=== PATIENT | female | born 1960 | race African-American/Black ===

== ENCOUNTER 2019-02-03 04:35 | Emergency (ER) | payer MEDICAID, OTHER ==
[~2019-02-03] VITALS: Ht 157.5 cm; Wt 61.0 kg
[~2019-02-03 04:35] MED LIST: ABIL5; BENA10TA10; METF-414
[2019-02-03] MEDS ORDERED: SODIUM CHLORIDE 0.9% 1,000 ML IV ONE (06:26)
[2019-02-03 07:00] LABS: CHLORIDE 99 mEq/L (98-107)
[2019-02-03 07:02] LABS: BASOPHILS % 1.1 % (0.0-2.0); EOSINOPHILS % 2.7 % (0.0-5.0); HEMATOCRIT. 45.3 % (36.0-48.0); LYMPHOCYTES % 35.2 % (20.0-50.0); MEAN CORPUSCULAR HEMOGLOBIN 29.7 pg (28.0-32.0); MEAN CORPUSCULAR VOLUME 89.4 fL (81.0-99.0); MEAN PLATELET VOLUME 8.7 fl (7.4-10.4); MONOCYTES % 9.9 % (2.0-8.0); NEUTROPHILS % 51.1 % (40.0-76.0); PLATELET 328 x1000/uL (130-400); RED BLOOD CELL COUNT 5.07 mill/uL (4.2-5.4); RED CELL DISTRIBUTION WIDTH 14.4 % (11.6-14.6)
[2019-02-03 07:03] LABS: ETHANOL BLOOD < 10 mg/dL
[2019-02-03] MEDS ORDERED: INSULIN REGULAR (HUMULIN R) 300UNITS/3ML IV ONE (07:15)
[2019-02-03 07:28] LABS: CLARITY URINE CLEAR (CLEAR); COLOR URINE YELLOW (YELLOW); KETONES URINE NEGATIVE (NEGATIVE); LEUKOCYTE ESTERASE URINE 2+ (NEGATIVE); NITRITE URINE NEGATIVE (NEGATIVE); OCCULT BLOOD URINE NEGATIVE (NEGATIVE); PH URINE 6.5 (4.5-8.0); PROTEIN URINE NEGATIVE (NEGATIVE); SPECIFIC GRAVITY URINE 1.031 (1.005-1.030)
[2019-02-03 07:42] LABS: *BARBITURATES SCREEN URINE NEGATIVE (NEGATIVE)
[2019-02-03 07:43] LABS: *AMPHETAMINES SCREEN URINE NEGATIVE (NEGATIVE); *BENZODIAZEPINES SCREEN URINE NEGATIVE (NEGATIVE); *COCAINE SCREEN URINE PRESUMTIVE POSITIVE (NEGATIVE); CANNABINOID URINE SCREEN NEGATIVE (NEGATIVE); METHADONE URINE SCREEN NEGATIVE (NEGATIVE); OPIATES URINE SCREEN NEGATIVE (NEGATIVE); PHENCYCLIDINE URINE SCREEN NEGATIVE (NEGATIVE)
[2019-02-03] MEDS ORDERED: CEFTRIAXONE 1 G PREMIX 50 ML IV ONE (07:45)
[2019-02-03 07:53] LABS: BG BASE EXCESS 0.9 mmol/L (-2.0-2.0); BG CARBOXYHEMOGLOBIN 10.3 % (0.5-1.5); BG DEOXYHEMOGLOBIN 3.7 % (0.0-5.0); BG HCO3 ACT 25.4 mmol/L (22.0-26.0); BG METHEMOGLOBIN 0.3 % (0.0-1.5); BG OXYGEN SATURATION 95.9 % (92.0-98.5); BG OXYHEMOGLOBIN 85.7 % (94.0-97.0); BG PCO2 40.4 mmHg (35.0-45.0); BG PH 7.417 (7.350-7.450); BG PO2 77.7 mmHg (75.0-100.0); BG SAMPLE SITE LEFT BRACHIAL; BG TOTAL HEMOGLOBIN 14.4 g/dL (12.0-18.0); BG VENT MODE ROOM AIR
[2019-02-03 12:29] VITALS: BP 134/76
== END 2019-02-03 12:29 | disposition home or self-care (01) ==
LOC: ER 04:35
DX: E11.65 Type 2 diabetes mellitus with hyperglycemia (principal); F14.129 Cocaine abuse with intoxication, unspecified; E87.6 Hypokalemia; E03.9 Hypothyroidism, unspecified; I10 Essential (primary) hypertension; F15.10 Other stimulant abuse, uncomplicated; F17.200 Nicotine dependence, unspecified, uncomplicated; Z91.14 Patient's other noncompliance with medication regimen; Z88.5 Allergy status to narcotic agent; Z79.84 Long term (current) use of oral hypoglycemic drugs
CPT/HCPCS: 36415; 36600; 80048; 80305; 80307; 80320; 80329; 81003; 82010; 82375; 82805; 82962; 84484; 85025; 87077; 87086; 93005; 96365; 96366; 96375; 99284; J0696; J1815; J7030; Z7610; G0480

== ENCOUNTER 2020-03-22 07:45 | Inpatient (IN) | payer MEDICAID, OTHER ==
[~2020-03-22] VITALS: Ht 154.9 cm; Wt 47.6 kg
[~2020-03-22 07:45] MED LIST changes: -BENA10TA10; +BENA10TA74
[2020-03-22] MEDS ORDERED: SODIUM CHLORIDE 0.9% 1,000 ML IV ONE ×2 (08:22→09:33)
[2020-03-22 08:54] LABS: BASOPHILS % 1.2 % (0.0-2.0); EOSINOPHILS % 1.9 % (0.0-5.0); HEMOGLOBIN. 16.5 g/dL (12.0-16.0); LYMPHOCYTES % 25.4 % (20.0-50.0); MEAN CORPUSCULAR HEMOGLOBIN 31.6 pg (28.0-32.0); MEAN CORPUSCULAR VOLUME 95.7 fL (81.0-99.0); MEAN PLATELET VOLUME 9.4 fl (7.4-10.4); NEUTROPHILS % 65.5 % (40.0-76.0); PLATELET 264 x1000/uL (130-400); RED BLOOD CELL COUNT 5.23 mill/uL (4.2-5.4); RED CELL DISTRIBUTION WIDTH 13.6 % (11.6-14.6)
[2020-03-22 08:54] LABS: CLARITY URINE CLEAR (CLEAR); COLOR URINE YELLOW (YELLOW); KETONES URINE 2+ (NEGATIVE); LEUKOCYTE ESTERASE URINE NEGATIVE (NEGATIVE); NITRITE URINE NEGATIVE (NEGATIVE); OCCULT BLOOD URINE NEGATIVE (NEGATIVE); PROTEIN URINE TRACE (NEGATIVE); SPECIFIC GRAVITY URINE 1.036 (1.005-1.030); UROBILINOGEN URINE 0.2 E.U./dL (0.2-1.0)
[2020-03-22 08:57] LABS: CHLORIDE 96 mEq/L (98-107)
[2020-03-22 09:06] LABS: BETA HYDROXYBUTYRATE 3.3 mMol/L (0.0-0.3)
[2020-03-22] MEDS ORDERED: INSULIN REGULAR (HUMULIN R) UD 100 UNITS/ML SYR IV ONE (09:15)
[2020-03-22] MEDS ORDERED: KETOROLAC 15MG/ML VIAL IV ONE (09:45)
[2020-03-22] MEDS ORDERED: CEFTRIAXONE 1 G PREMIX 50 ML IV ONE (09:45)
[2020-03-22] MEDS ORDERED: INSULIN REGULAR (HUMULIN R) 300UNITS/3ML IV ONE (09:45)
[2020-03-22 11:30] LABS: BG BASE EXCESS -6.8 mmol/L (-2.0-2.0); BG CARBOXYHEMOGLOBIN 0.8 % (0.5-1.5); BG DEOXYHEMOGLOBIN 4.3 % (0.0-5.0); BG FRACTION INSPIRED OXYGEN 21; BG HCO3 ACT 19.2 mmol/L (22.0-26.0); BG METHEMOGLOBIN 0.3 % (0.0-1.5); BG OXYGEN SATURATION 95.7 % (92.0-98.5); BG OXYHEMOGLOBIN 94.6 % (94.0-97.0); BG PCO2 40.2 mmHg (35.0-45.0); BG PH 7.297 (7.350-7.450); BG SAMPLE SITE RIGHT RADIAL; BG TOTAL HEMOGLOBIN 13.7 g/dL (12.0-18.0); BG VENT MODE ROOM AIR
[2020-03-22] MEDS ORDERED: LIDOCAINE HCL/PF 1% 2ML VIAL ONE (11:30)
[2020-03-22] MEDS: INSULIN LISPRO 100 UNITS/ML SUBCUT SCH ×3 (13:20→21:00)
[2020-03-22] MEDS ORDERED: IPRATROPIUM/ALBUTEROL 0.5-3(2.5)MG/3ML NEB HHN PRN (13:30)
[2020-03-22] MEDS ORDERED: ACETAMINOPHEN 325MG TABLET PO PRN (13:30)
[2020-03-22] MEDS ORDERED: DEXTROSE 50% WATER 50ML SYRINGE IV PRN (13:30)
[2020-03-22] MEDS ORDERED: ONDANSETRON HCL 4MG/2ML INJ IV PRN (13:30)
[2020-03-22] MEDS: SODIUM CHLORIDE 0.9% 1,000 ML IV SCH (13:30)
[2020-03-22] MEDS ORDERED: BENZONATATE 100MG CAPSULE PO PRN (13:30)
[2020-03-22] MEDS ORDERED: INSULIN GLARGINE UD 100 UNITS/ML SYR SUBCUT NR (15:00)
[2020-03-22] MEDS: BLOOD SUGAR DIAGNOSTIC STRIP TEST SCH ×3 (15:07→21:00)
[2020-03-22 17:51] VITALS: BP 119/70
[2020-03-22] MEDS ORDERED: AMLODIPINE 5MG TABLET PO NR (18:15)
[2020-03-22 20:00] VITALS: BP 141/52
[2020-03-22] MEDS: CLONAZEPAM 1MG TABLET PO SCH (20:59)
[2020-03-22] MEDS: AMLODIPINE 5MG TABLET PO SCH (20:59)
[2020-03-22] MEDS ORDERED: INSULIN GLARGINE UD 100 UNITS/ML SYR SUBCUT SCH ×2 (22:00→23:00)
[2020-03-23] VITALS: BP 110/61
[2020-03-23] MEDS: SODIUM CHLORIDE 0.9% 1,000 ML IV SCH ×2 (02:23→17:32)
[2020-03-23 04:00] VITALS: BP 114/74
[2020-03-23] MEDS: BLOOD SUGAR DIAGNOSTIC STRIP TEST SCH ×4 (07:32→21:00)
[2020-03-23 08:00] VITALS: BP 119/70
[2020-03-23] MEDS: AMLODIPINE 5MG TABLET PO SCH ×2 (08:49→21:00)
[2020-03-23] MEDS: CLONAZEPAM 1MG TABLET PO SCH ×2 (08:49→17:32)
[2020-03-23] MEDS: INSULIN LISPRO 100 UNITS/ML SUBCUT SCH ×4 (08:51→21:00)
[2020-03-23] MEDS: INSULIN GLARGINE UD 100 UNITS/ML SYR SUBCUT SCH ×2 (10:54→22:34)
[2020-03-23 12:00] VITALS: BP 95/52
[2020-03-23] MEDS: FOLIC ACID 1MG TABLET PO SCH (15:46)
[2020-03-23] MEDS: MULTIVITAMINS,THER W-MINERALS TABLET PO SCH (15:46)
[2020-03-23] MEDS: THIAMINE HCL 100MG TABLET PO SCH (15:46)
[2020-03-23 16:00] VITALS: BP 113/70
[2020-03-23] MEDS: METFORMIN HCL 500MG TABLET PO SCH (17:32)
[2020-03-23 19:45] LABS: *AMPHETAMINES SCREEN URINE PRESUMTIVE POSITIVE (NEGATIVE); *BARBITURATES SCREEN URINE NEGATIVE (NEGATIVE); *BENZODIAZEPINES SCREEN URINE NEGATIVE (NEGATIVE); *COCAINE SCREEN URINE PRESUMTIVE POSITIVE (NEGATIVE); CANNABINOID URINE SCREEN NEGATIVE (NEGATIVE); METHADONE URINE SCREEN NEGATIVE (NEGATIVE); OPIATES URINE SCREEN NEGATIVE (NEGATIVE); PHENCYCLIDINE URINE SCREEN NEGATIVE (NEGATIVE)
[2020-03-23 20:00] VITALS: BP 106/57
[2020-03-23 20:33] LABS: CHLORIDE 113 mEq/L (98-107)
[2020-03-24] VITALS: BP 121/73
[2020-03-24 04:00] VITALS: BP 121/73
[2020-03-24] MEDS: BLOOD SUGAR DIAGNOSTIC STRIP TEST SCH ×4 (07:20→21:35)
[2020-03-24 08:00] VITALS: BP 110/66
[2020-03-24] MEDS: INSULIN LISPRO 100 UNITS/ML SUBCUT SCH ×6 (08:38→21:36)
[2020-03-24] MEDS: THIAMINE HCL 100MG TABLET PO SCH (08:41)
[2020-03-24] MEDS: METFORMIN HCL 500MG TABLET PO SCH ×2 (08:41→17:43)
[2020-03-24] MEDS: CLONAZEPAM 1MG TABLET PO SCH ×2 (08:41→17:43)
[2020-03-24] MEDS: FOLIC ACID 1MG TABLET PO SCH (08:41)
[2020-03-24] MEDS: MULTIVITAMINS,THER W-MINERALS TABLET PO SCH (08:41)
[2020-03-24] MEDS: AMLODIPINE 5MG TABLET PO SCH ×2 (08:42→21:35)
[2020-03-24] MEDS: INSULIN GLARGINE UD 100 UNITS/ML SYR SUBCUT SCH ×2 (11:03→21:55)
[2020-03-24 16:00] VITALS: BP 117/71
[2020-03-24] MEDS: SODIUM CHLORIDE 0.9% 1,000 ML IV SCH (18:01)
[2020-03-24 20:00] VITALS: BP 121/63
[2020-03-25] VITALS: BP_SYST 112; BP_SYST 117; BP_DIAS 60; BP_DIAS 64
[2020-03-25 04:00] VITALS: BP 117/64
[2020-03-25] MEDS: BLOOD SUGAR DIAGNOSTIC STRIP TEST SCH ×4 (06:37→21:41)
[2020-03-25] MEDS: SODIUM CHLORIDE 0.9% 1,000 ML IV SCH (08:10)
[2020-03-25] MEDS: INSULIN LISPRO 100 UNITS/ML SUBCUT SCH ×7 (08:37→21:41)
[2020-03-25] MEDS: MULTIVITAMINS,THER W-MINERALS TABLET PO SCH (08:48)
[2020-03-25] MEDS: CLONAZEPAM 1MG TABLET PO SCH ×2 (08:48→17:31)
[2020-03-25] MEDS: THIAMINE HCL 100MG TABLET PO SCH (08:48)
[2020-03-25] MEDS: FOLIC ACID 1MG TABLET PO SCH (08:48)
[2020-03-25] MEDS: METFORMIN HCL 500MG TABLET PO SCH ×2 (08:48→17:31)
[2020-03-25] MEDS: AMLODIPINE 5MG TABLET PO SCH ×2 (08:53→21:40)
[2020-03-25] MEDS: INSULIN GLARGINE UD 100 UNITS/ML SYR SUBCUT SCH ×2 (11:04→21:40)
[2020-03-25 20:00] VITALS: BP 134/62
[2020-03-26 04:00] VITALS: BP 139/74
[2020-03-26] MEDS: BLOOD SUGAR DIAGNOSTIC STRIP TEST SCH ×2 (06:22→12:26)
[2020-03-26] MEDS: METFORMIN HCL 500MG TABLET PO SCH (08:33)
[2020-03-26] MEDS: MULTIVITAMINS,THER W-MINERALS TABLET PO SCH (08:33)
[2020-03-26] MEDS: CLONAZEPAM 1MG TABLET PO SCH (08:33)
[2020-03-26] MEDS: FOLIC ACID 1MG TABLET PO SCH (08:33)
[2020-03-26] MEDS: THIAMINE HCL 100MG TABLET PO SCH (08:33)
[2020-03-26] MEDS: INSULIN LISPRO 100 UNITS/ML SUBCUT SCH ×3 (08:57→12:27)
[2020-03-26] MEDS: AMLODIPINE 5MG TABLET PO SCH (08:58)
[2020-03-26] MEDS: INSULIN GLARGINE UD 100 UNITS/ML SYR SUBCUT SCH (11:05)
[2020-03-26] MEDS ORDERED: AMLO5TAB88 PO (12:02)
[2020-03-26] MEDS ORDERED: INSU100I13 SQ (12:02)
[2020-03-26] MEDS ORDERED: INSULIN LISPRO 100 UNITS/ML SUBCUT SCH (12:20)
== END 2020-03-26 17:20 | disposition home or self-care (01) | DRG 420 ==
LOC: ER 07:45 → 6EST 12:38 → ENRESERV 15:30
PROVIDERS: ADMIT Internal Medicine; ATTEND Internal Medicine
DX: E11.00 Type 2 diabetes mellitus with hyperosmolarity without nonketotic hyperglycemic-hyperosmolar coma (NKHHC) (principal); E11.65 Type 2 diabetes mellitus with hyperglycemia; E87.1 Hypo-osmolality and hyponatremia; E87.8 Other disorders of electrolyte and fluid balance, not elsewhere classified; I10 Essential (primary) hypertension; F14.90 Cocaine use, unspecified, uncomplicated; F10.10 Alcohol abuse, uncomplicated; F17.210 Nicotine dependence, cigarettes, uncomplicated; Z60.2 Problems related to living alone; F20.9 Schizophrenia, unspecified; F15.90 Other stimulant use, unspecified, uncomplicated; Z71.41 Alcohol abuse counseling and surveillance of alcoholic; Z71.51 Drug abuse counseling and surveillance of drug abuser; Z71.6 Tobacco abuse counseling; Z88.5 Allergy status to narcotic agent
CPT/HCPCS: 36415; 36600; 71045; 80048; 80053; 80305; 81003; 82010; 82375; 82805; 82962; 83036; 84484; 85025; 93005; 99285; J0696; J1815; J1885; J3490; J7030

== ENCOUNTER 2020-04-21 15:47 | Inpatient (IN) | payer OTHER ==
[~2020-04-21] VITALS: Ht 165.1 cm; Wt 60.0 kg
[~2020-04-21 15:47] MED LIST changes: +AMLO5TAB88 PO; +INSU100I13 SQ
[2020-04-21] MEDS ORDERED: SODIUM CHLORIDE 0.9% 1,000 ML IV ONE (16:30)
[2020-04-21] MEDS ORDERED: CALCIUM GLUCONATE 1,000 MG in DEXTROSE 5% WATER 50 ML IV ONE (16:30)
[2020-04-21 16:41] LABS: BASOPHILS % 0.6 % (0.0-2.0); EOSINOPHILS % 1.2 % (0.0-5.0); HEMATOCRIT. 42.7 % (36.0-48.0); HEMOGLOBIN. 14.1 g/dL (12.0-16.0); LYMPHOCYTES % 12.1 % (20.0-50.0); MEAN CORPUSCULAR HEMOGLOBIN 31.6 pg (28.0-32.0); MEAN CORPUSCULAR VOLUME 95.5 fL (81.0-99.0); MEAN PLATELET VOLUME 8.8 fl (7.4-10.4); MONOCYTES % 5.6 % (2.0-8.0); NEUTROPHILS % 80.5 % (40.0-76.0); PLATELET 277 x1000/uL (130-400); RED BLOOD CELL COUNT 4.47 mill/uL (4.2-5.4); RED CELL DISTRIBUTION WIDTH 13.5 % (11.6-14.6)
[2020-04-21 16:45] LABS: CHLORIDE 101 mEq/L (98-107)
[2020-04-21 16:50] LABS: ETHANOL BLOOD < 10 mg/dL
[2020-04-21] MEDS ORDERED: INSULIN REGULAR (HUMULIN R) 300UNITS/3ML SUBCUT ONE (18:30)
[2020-04-22 08:59] LABS: CLARITY URINE TURBID (CLEAR); COLOR URINE YELLOW (YELLOW); KETONES URINE TRACE (NEGATIVE); LEUKOCYTE ESTERASE URINE 2+ (NEGATIVE); NITRITE URINE NEGATIVE (NEGATIVE); OCCULT BLOOD URINE 2+ (NEGATIVE); PH URINE 5.5 (4.5-8.0); PROTEIN URINE 1+ (NEGATIVE); SPECIFIC GRAVITY URINE 1.036 (1.005-1.030)
[2020-04-22 09:17] LABS: *AMPHETAMINES SCREEN URINE PRESUMTIVE POSITIVE (NEGATIVE); *BARBITURATES SCREEN URINE NEGATIVE (NEGATIVE); *COCAINE SCREEN URINE PRESUMTIVE POSITIVE (NEGATIVE)
[2020-04-22 09:18] LABS: *BENZODIAZEPINES SCREEN URINE NEGATIVE (NEGATIVE); CANNABINOID URINE SCREEN NEGATIVE (NEGATIVE); METHADONE URINE SCREEN NEGATIVE (NEGATIVE); OPIATES URINE SCREEN NEGATIVE (NEGATIVE)
[2020-04-22 09:29] LABS: PHENCYCLIDINE URINE SCREEN NEGATIVE (NEGATIVE)
[2020-04-22] MEDS ORDERED: KETOROLAC 30MG/ML VIAL IV PRN (10:45)
[2020-04-22] MEDS ORDERED: ONDANSETRON HCL 4MG/2ML INJ IV PRN (10:45)
[2020-04-22] MEDS ORDERED: ACETAMINOPHEN 325MG TABLET PO PRN (10:45)
[2020-04-22] MEDS ORDERED: DEXTROSE 50% WATER 50ML SYRINGE IV PRN (10:45)
[2020-04-22] MEDS ORDERED: CEFTRIAXONE 1 G PREMIX 50 ML IV SCH (10:45)
[2020-04-22] MEDS ORDERED: INSULIN GLARGINE UD 100 UNITS/ML SYR SUBCUT NR (10:45)
[2020-04-22] MEDS: BLOOD SUGAR DIAGNOSTIC STRIP TEST SCH ×3 (11:36→16:03)
[2020-04-22] MEDS ORDERED: HALOPERIDOL 5MG TABLET PO PRN (11:45)
[2020-04-22] MEDS ORDERED: LORAZEPAM 2MG/ML CPJ IV PRN (11:45)
[2020-04-22] MEDS: INSULIN LISPRO 100 UNITS/ML SUBCUT SCH ×2 (11:49→16:07)
[2020-04-22] MEDS: CEFTRIAXONE 1,000 MG in DEXTROSE 5% WATER 50 ML IV SCH (11:49)
[2020-04-22] MEDS: QUETIAPINE FUMARATE 25MG TABLET PO SCH ×3 (12:00→16:07)
[2020-04-22] MEDS ORDERED: INSULIN GLARGINE UD 100 UNITS/ML SYR SUBCUT SCH (22:00)
[2020-04-23] MEDS: INSULIN LISPRO 100 UNITS/ML SUBCUT SCH ×2 (07:00→18:32)
[2020-04-23] MEDS ORDERED: AMLO5TAB88 PO (10:09)
[2020-04-23] MEDS ORDERED: LANTUSUD SUBCUT (10:09)
[2020-04-23] MEDS ORDERED: LEVO500T2 MT (10:09)
[2020-04-23] MEDS: THIAMINE HCL 100MG TABLET PO SCH (10:38)
[2020-04-23] MEDS: FOLIC ACID 1MG TABLET PO SCH ×2 (10:59→11:25)
[2020-04-23] MEDS: MULTIVITAMINS,THER W-MINERALS TABLET PO SCH (11:25)
[2020-04-23] MEDS: BLOOD SUGAR DIAGNOSTIC STRIP TEST SCH ×3 (11:30→17:30)
[2020-04-23] MEDS: CEFTRIAXONE 1,000 MG in DEXTROSE 5% WATER 50 ML IV SCH (12:00)
[2020-04-23] MEDS: INSULIN GLARGINE UD 100 UNITS/ML SYR SUBCUT SCH (22:05)
[2020-04-24] MEDS: FOLIC ACID 1MG TABLET PO SCH (07:00)
[2020-04-24] MEDS: INSULIN LISPRO 100 UNITS/ML SUBCUT SCH ×4 (07:00→19:58)
[2020-04-24] MEDS: BLOOD SUGAR DIAGNOSTIC STRIP TEST SCH ×4 (07:00→17:17)
[2020-04-24] MEDS: MULTIVITAMINS,THER W-MINERALS TABLET PO SCH (09:00)
[2020-04-24] MEDS: THIAMINE HCL 100MG TABLET PO SCH (09:19)
[2020-04-24] MEDS: INSULIN GLARGINE UD 100 UNITS/ML SYR SUBCUT SCH (10:00)
[2020-04-24] MEDS: CEFTRIAXONE 1,000 MG in DEXTROSE 5% WATER 50 ML IV SCH (12:00)
[2020-04-24] MEDS ORDERED: KETOROLAC 30MG/ML VIAL IV NR (13:00)
[2020-04-24 23:03] VITALS: BP 132/81
== END 2020-04-24 23:27 | DRG 463 ==
LOC: ER 15:47 → EDBEDREQ 18:35 → EDBEDREQTM 18:35 → EDBEDREQ 19:43 → MICUSO 19:44
PROVIDERS: ADMIT Internal Medicine; ATTEND Internal Medicine
DX: N39.0 Urinary tract infection, site not specified (principal); E11.65 Type 2 diabetes mellitus with hyperglycemia; F10.10 Alcohol abuse, uncomplicated; F14.10 Cocaine abuse, uncomplicated; F17.210 Nicotine dependence, cigarettes, uncomplicated; F20.9 Schizophrenia, unspecified; I10 Essential (primary) hypertension; Z60.2 Problems related to living alone; Z20.828 Contact with and (suspected) exposure to other viral communicable diseases; F15.10 Other stimulant abuse, uncomplicated; Z79.4 Long term (current) use of insulin; Z91.14 Patient's other noncompliance with medication regimen; Z88.6 Allergy status to analgesic agent; Z79.84 Long term (current) use of oral hypoglycemic drugs; Z79.899 Other long term (current) drug therapy; Z98.891 History of uterine scar from previous surgery
CPT/HCPCS: 36415; 71045; 73030; 80053; 80305; 80320; 81003; 82962; 83605; 83880; 84484; 85025; 87635; 93005; 96365; 99285; J0610; J0696; J1815; J1885; J7030; J7060; G0480